=== PATIENT | male | born 1975 | race African-American/Black ===

== ENCOUNTER 2016-11-15 20:02 | Emergency (ER) | payer OTHER ==
[~2016-11-15] VITALS: Ht 185.4 cm; Wt 74.4 kg
[~2016-11-15 20:02] MED LIST: ALBUTEROL17 GM INH; IBUPROFEN600 MG PO; LORTAB 5/500 TA1 TA1 PO; MOBIC15 MG PO; MOTRIN600 MG PO; NO MEDICATIONS; ROBAXIN500 MG PO; TYLENOL #3 PO; VIGAMOX3 M1 OP; VOLTAREN75 MG PO; ZITHROMAX1 G/PKT PO
== END 2016-11-15 23:40 | disposition home or self-care (01) ==
LOC: SED 20:02
DX: H16.003 Unspecified corneal ulcer, bilateral (principal); Z23 Encounter for immunization
CPT/HCPCS: 90471; 90715; 99283